=== PATIENT | male | born 1980 | race Caucasian/White ===

== ENCOUNTER 2023-03-21 19:17 | Emergency (ER) | payer OTHER ==
[2023-03-21 19:25] VITALS: BP 147/88
--- NOTE | 2023-03-21 20:06 | ED Physician Documentation ---
PD HPI UPPER EXT INJURY - Stated complaint Stated Complaint: LT WRIST INJ - Chief complaint Chief Complaint: Trauma Ext - History obtained from History obtained from: Patient - Additonal information Additional information: HPI from patient. Patient is right-hand dominant. Patient complains of left wrist pain, volar surface, sudden onset at approximately 6:50 PM today when he was pitching a softball game. The batter hit the ball, the patient says the ball was a line-drive right into the patient's left wrist. Pain is worse with movement, palpation. Denies numbness, weakness. Patient denies any other injury. Review of Systems Musculoskeletal: reports: Extremity pain, Joint pain Neurologic: denies: Focal weakness, Numbness PD PAST MEDICAL HISTORY - Past Medical History Past Medical History: No - Allergies Allergies/Adverse Reactions: Allergies Allergy/AdvReac Type Severity Reaction Status Date / Time No Known Drug Allergies Allergy Verified 03/21/23 19:23 PD ED PE NORMAL - Vitals Vital signs reviewed: Yes - General General: Alert and oriented X 3, No acute distress, Well developed/nourished PD ED PE EXPANDED - Extremities Extremities: Other (FROM left wrist although increased pain with extremes of flexion, extension. no "snuff box" tenderness) TONNY UE/Hands Visual: 1 - bruising, swelling, tenderness Results - Vitals Vitals: Vital Signs - 24 hr 03/21/23 19:21 Temperature 35.9 C L Heart Rate 105 H Respiratory 19 Rate Blood Pressure 147/88 H O2 Saturation 95 Oxygen O2 Source Room air - Rads (name of study) left wrist xrays Relevant Findings:: Prelim report reviewed, EMP independent interpretation of test (I reviewed these images and my interpretation is: no acute abnormality including no evidence of fracture, dislocation), See rad report PD Medical Decision Making - ED course Complexity details: reviewed results, considered differential, d/w patient ED course: No evidence of acute injury on left wrist x-rays. Patient is placed in a left wrist Velcro splint. Return precautions are discussed. He declines analgesia, says he will take ibuprofen when he gets home. Departure - Departure Disposition: 01 Home, Self Care Clinical Impression: Contusion, wrist Condition: Good Instructions: ED Sprain Wrist Comments: There is no evidence of injury on tonight's wrist x-rays; specifically, no evidence of any fracture/broken bones, nor any evidence of dislocation. As we discussed, there is always a small chance that there is a break that is not appearing on the x-rays. For this reason, you should follow-up with your primary care provider in 5 to 7 days for reevaluation unless the symptoms have completely resolved. You have been provided a wrist splint. I recommend you wear the splint for the next 4 to 5 days during the day, but you can continue to use it after that timeframe if it seems like it is still helping with any residual discomfort. Discharge Date/Time: 03/21/23 21:06
--- NOTE | 2023-03-21 20:10 | XRAY Report ---
PROCEDURE: Wrist 4 View LT INDICATIONS: Trauma TECHNIQUE: 4 views of the wrist were acquired. COMPARISON: None. FINDINGS: Bones: No fractures or dislocations. No suspicious bony lesions. Soft tissues: No suspicious soft tissue calcifications or masses. IMPRESSION: No visualized acute fracture or dislocation. However, occult injury cannot be excluded. Recommend brittany rt interval imaging follow-up in 7-10 days as clinically indicated for additional evaluation. Reviewed by: Daysi Tillman MD on 03/21/2023 8:08 PM PDT Approved by: Daysi Tillman MD on 03/21/2023 8:08 PM PDT Station ID: [id number]
== END 2023-03-21 21:06 | disposition home or self-care (01) ==
LOC: ED 19:17
DX: S60.212A Contusion of left wrist, initial encounter (principal); X58.XXXA Exposure to other specified factors, initial encounter; Y93.64 Activity, baseball
CPT/HCPCS: 99283